=== PATIENT | female | born 1985 | race Caucasian/White ===

== ENCOUNTER 2016-04-06 19:17 | Emergency (ER) | payer SELFPAY ==
[2016-04-06 19:27] VITALS: BP 115/94
[2016-04-06] MEDS ORDERED: NORMAL SALINE 1000 ML 1,000 ML IV ONE (19:35)
--- NOTE | 2016-04-06 19:39 | ER Document Report ---
ED GI/ - General Chief Complaint: Nausea/Vomiting Stated Complaint: NAUSEA Time seen by provider: 19:30 Notes: 30-year-old female that comes to the ED for chief complaint of vomiting that started this morning, she states she has vomited almost non-stop. She reports feeling feverish, patient came by EMS and they recorded a temperature of 100.2. Patient reports pain in her upper abdomen, denies flank pain, denies dysuria, denies vaginal discharge or bleeding. LMP 2 weeks ago. Patient takes no daily medications, smokes marijuana for anxiety, reports past medical history of bipolar/depression. - Related Data Allergies/Adverse Reactions: Penicillins Allergy (Verified 09/04/13 02:23) Past Medical History - General Information source: Patient - Social History Smoking Status: Never Smoker Frequency of alcohol use: None Drug Abuse: Marijuana Lives with: Spouse/Significant other Family History: Arthritis, CAD, DM, Hypertension, Malignancy Pulmonary Medical History: Reports: Hx Asthma Renal/ Medical History: Reports: Hx Ovarian Cysts Psychiatric Medical History: Reports: Hx Anxiety - panic attacks, Hx Bipolar Disorder, Hx Depression Surgical Hx: Negative - Immunizations Immunizations up to date: Yes Hx Diphtheria, Pertussis, Tetanus Vaccination: Yes Review of Systems - Review of Systems Constitutional: See HPI EENT: No symptoms reported Cardiovascular: No symptoms reported Respiratory: No symptoms reported Gastrointestinal: See HPI Genitourinary: No symptoms reported Female Genitourinary: No symptoms reported Musculoskeletal: No symptoms reported Skin: No symptoms reported Hematologic/Lymphatic: No symptoms reported Neurological/Psychological: No symptoms reported Physical Exam - Vital signs Vitals: Temp Pulse Resp BP Pulse Ox 98.5 F 74 16 115/94 H 100 04/06/16 19:23 04/06/16 19:23 04/06/16 19:23 04/06/16 19:23 04/06/16 19:23 Interpretation: Normal - General General appearance: Appears well, Alert In distress: None - Alert and well-appearing - HEENT Head: Normocephalic, Atraumatic Eyes: Normal Pupils: PERRL - Respiratory Respiratory status: No respiratory distress Chest status: Nontender Breath sounds: Normal Chest palpation: Normal - Cardiovascular Rhythm: Regular. No: Tachycardia Heart sounds: Normal auscultation, S1 appreciated, S2 appreciated Murmur: No - Abdominal Inspection: Normal Distension: No distension Bowel sounds: Normal Tenderness: Nontender - Soft unremarkable abdomen. No: Tender, Guarding Organomegaly: No organomegaly - Back Back: Normal, Nontender. No: CVA tenderness, Vertebra tenderness - Extremities General upper extremity: Normal inspection, Nontender, Normal color, Normal ROM , Normal temperature General lower extremity: Normal inspection, Nontender, Normal color, Normal ROM , Normal temperature, Normal weight bearing. No: Arnol's sign - Neurological Neuro grossly intact: Yes Cognition: Normal Orientation: AAOx4 Rut Coma Scale Eye Opening: Spontaneous [place] Coma Scale Verbal: Oriented [place] Coma Scale Motor: Obeys Commands [place] Coma Scale Total: 15 Speech: Normal Motor strength normal: LUE, RUE, LLE, RLE Sensory: Normal - Psychological Associated symptoms: Normal affect, Normal mood - Skin Skin Temperature: Warm Skin Moisture: Dry Skin Color: Normal Course - Re-evaluation Re-evalutation: After Zofran, IV fluids, patient smiling, she states she feels excellent, she states she wants to go home. CBC shows leukocytosis at 16,000 with elevation of neutrophils, this is nonspecific given patient's vomiting, patient's abdomen is soft, patient has no CVA tenderness, patient is not tachycardic or hypotensive. Urine shows nitrites, white blood cells, bacteria, consistent with urinary tract infection. Patient given Levaquin. Patient does not have any urinary symptoms, however with fever and vomiting it's possible she has a mild pyelonephritis despite no flank pain on examination and patient feeling excellent after Zofran and IV fluids. Could also be viral. Low suspicion of any obstructive stone or any other emergent pathology. Patient will be treated with Levaquin, given Zofran/Phenergan, instructed to return immediately if she worsens, discussed return precautions. Patient states understanding and agreement. - Vital Signs Vital signs: Temp Pulse Resp BP Pulse Ox 98.5 F 74 16 115/94 H 100 04/06/16 19:23 04/06/16 19:23 04/06/16 19:23 04/06/16 19:23 04/06/16 19:23 - Laboratory Result Diagrams: 04/06/16 19:41 04/06/16 19:41 Laboratory results interpreted by me: 04/06/16 04/06/16 04/06/16 19:41 19:41 20:50 WBC 16.0 H Hgb 11.9 L Hct 35.2 L Seg Neuts % (Manual) 84 H Lymphocytes % (Manual) 9 L Abs Neuts (Manual) 13.4 H Carbon Dioxide 21 L AST 40 H Urine Protein 100 H Urine Ketones 80 H Urine Nitrite POSITIVE H Urine Urobilinogen 2.0 H Ur Leukocyte Esterase TRACE H Urine Ascorbic Acid 40 H Discharge - Discharge Clinical Impression: Fever Qualifiers: Fever type: unspecified Qualified Code(s): R50.9 - Fever, unspecified Urinary tract infection Qualifiers: Urinary tract infection type: site unspecified Hematuria presence: without hematuria Qualified Code(s): N39.0 - Urinary tract infection, site not specified Nausea and vomiting Qualifiers: Vomiting type: unspecified Vomiting Intractability: non-intractable Qualified Code(s): R11.2 - Nausea with vomiting, unspecified Condition: Stable Disposition: HOME, SELF-CARE Additional Instructions: Workup indicates dehydration and a urinary tract infection. Please take the Levaquin as prescribed, continue to rehydrate, take Zofran or Phenergan for nausea. Follow-up with primary care. Return to the emergency department for any concerning or worsening symptoms including uncontrolled vomiting, spiking fever, abdominal or back pain, etc. Prescriptions: Levofloxacin [Levaquin 750 mg Tablet] 750 mg PO DAILY #4 tablet Promethazine HCl [Phenergan 25 mg Tablet] 1 - 2 tab PO Q6H PRN #15 tablet PRN Reason: Forms: Return to Work
[2016-04-06 20:13] LABS: HEMATOCRIT 35.2 % (36.0-47.0); HEMOGLOBIN 11.9 g/dL (12.0-15.5); HGB HCT DIFFERENCE 0.5; MEAN CORPUSCULAR HEMOGLOBIN 29.1 pg (27.0-33.4); MEAN CORPUSCULAR HGB CONC 33.7 g/dL (32.0-36.0); MEAN CORPUSCULAR VOLUME 86 fl (80-97); RED BLOOD COUNT 4.08 10^6/uL (3.72-5.28); RED CELL DISTRIBUTION WIDTH 13.5 % (11.5-14.0)
[2016-04-06 20:17] LABS: ALANINE AMINOTRANSFERASE 25 U/L (9-52); ALBUMIN 4.2 g/dL (3.5-5.0); ALKALINE PHOSPHATASE 68 U/L (38-126); ANION GAP 15 (5-19); ASPARTATE AMINO TRANSFERASE 40 U/L (14-36); BILIRUBIN,TOTAL 0.7 mg/dL (0.2-1.3); BLOOD UREA NITROGEN 14 mg/dL (7-20); CALCIUM 9.2 mg/dL (8.4-10.2); CARBON DIOXIDE 21 mmol/L (22-30); CHLORIDE 106 mmol/L (98-107); CREATININE RESULT 0.68 mg/dL (0.52-1.25); GLUCOSE 103 mg/dL (75-110); LIPASE 52.9 U/L (23-300); POTASSIUM 3.6 mmol/L (3.6-5.0); SODIUM 141.8 mmol/L (137-145)
[2016-04-06 20:51] LABS: BASOPHILS % (MANUAL) 0 % (0-2); EOSINOPHILS % (MANUAL) 0 % (0-6); LYMPHOCYTES % (MANUAL) 9 % (13-45); TOTAL CELLS COUNTED 100
[2016-04-06 20:52] LABS: TOXIC GRANULATION 1+
[2016-04-06 20:54] LABS: RBC MORPHOLOGY COMMENT NORMO-CYTIC/CHROMIC
[2016-04-06] MEDS ORDERED: ONDANSETRON HCL INJ/PF 4 MG/2 ML SDV IV ONE (21:04)
[2016-04-06 21:17] LABS: APPEARANCE,URINE SLIGHTLY-CLOUDY; BILIRUBIN,URINE NEGATIVE (NEGATIVE); GLUCOSE, URINE NEGATIVE (NEGATIVE); KETONES,URINE 80 mg/dL (NEGATIVE); LEUKOCYTE ESTERASE,URINE TRACE (NEGATIVE); NITRITE,URINE POSITIVE (NEGATIVE); PROTEIN,URINE 100 mg/dL (NEGATIVE); URINE SPECIFIC GRAVITY 1.026
[2016-04-06] MEDS ORDERED: ONDANSETRON ODT 4 MG TAB (6 TAB/DSPK) PO PRN (21:52)
[2016-04-06] MEDS ORDERED: LEVOFLOXACIN 750 MG TABLET PO ONE (21:52)
== END 2016-04-06 22:07 | disposition home or self-care (01) ==
LOC: ER 19:17
DX: N39.0 Urinary tract infection, site not specified (principal); R50.9 Fever, unspecified; R11.2 Nausea with vomiting, unspecified; F41.9 Anxiety disorder, unspecified; F12.90 Cannabis use, unspecified, uncomplicated
CPT/HCPCS: 99283; 96361; 96374; 36415; 83690; 84703; 85025; 80053; 81001; 87804; J2405; J7030

== ENCOUNTER 2016-08-25 10:57 | Emergency (ER) | payer SELFPAY ==
[2016-08-25] MEDS ORDERED: FAMOTIDINE INJ/PF 20 MG/2 ML SDV IV ONE (11:20)
[2016-08-25] MEDS ORDERED: ONDANSETRON HCL INJ/PF 4 MG/2 ML SDV IV ONE (11:20)
--- NOTE | 2016-08-25 11:22 | ER Document Report ---
ED GI/ - General Chief Complaint: Nausea/Vomiting Stated Complaint: NAUSEA Time Seen by Provider: 08/25/16 11:05 Mode of Arrival: Medic Information source: Patient - HPI Patient complains to provider of: Abdominal pain, Vomiting Onset: This morning Timing/Duration: Sudden Quality of pain: Achy Severity at maximum: Moderate Severity in ED: Moderate Pain Level: 4 Location: Epigastric Associated symptoms: Diarrhea, Nausea, Vomiting Exacerbated by: Denies Relieved by: Denies Similar symptoms previously: Yes Recently seen / treated by doctor: No Notes: 08/25/16 11:21 Is a 30-year-old female who presents to the emergency room complaining of nausea and vomiting with epigastric abdominal pain that started around 930 this morning, patient denies any fevers, no dysuria or hematuria, no vaginal discharge or irregular bleeding, denies being , she does report one episode of diarrhea, history of similar symptoms back in March where she states she vomited for 16 hours straight, she denies being a smoker using alcohol but she does admit to using marijuana - Related Data Allergies/Adverse Reactions: Penicillins Allergy (Verified 09/04/13 02:23) Past Medical History - General Information source: Patient - Social History Smoking Status: Never Smoker Drug Abuse: Marijuana Family History: Arthritis, CAD, DM, Hypertension, Malignancy Pulmonary Medical History: Reports: Hx Asthma Renal/ Medical History: Reports: Hx Ovarian Cysts Psychiatric Medical History: Reports: Hx Anxiety - panic attacks, Hx Bipolar Disorder, Hx Depression - Immunizations Immunizations up to date: Yes Hx Diphtheria, Pertussis, Tetanus Vaccination: Yes Review of Systems - Review of Systems Constitutional: No symptoms reported EENT: No symptoms reported Cardiovascular: No symptoms reported Respiratory: No symptoms reported Gastrointestinal: See HPI Genitourinary: No symptoms reported Female Genitourinary: No symptoms reported Musculoskeletal: No symptoms reported Skin: No symptoms reported Hematologic/Lymphatic: No symptoms reported Neurological/Psychological: No symptoms reported -: Yes All other systems reviewed and negative Physical Exam - Vital signs Vitals: Temp Pulse Resp BP Pulse Ox 97.3 F 80 18 123/70 100 08/25/16 11:09 08/25/16 11:09 08/25/16 11:09 08/25/16 11:09 08/25/16 11:09 Interpretation: Normal - General General appearance: Alert - HEENT Head: Normocephalic, Atraumatic Eyes: Normal Pupils: PERRL - Respiratory Respiratory status: No respiratory distress Chest status: Nontender Breath sounds: Normal Chest palpation: Normal - Cardiovascular Rhythm: Regular Heart sounds: Normal auscultation Murmur: No - Abdominal Inspection: Normal Distension: No distension Bowel sounds: Normal Tenderness: Tender - Epigastric Organomegaly: No organomegaly - Back Back: Normal, Nontender - Extremities General upper extremity: Normal inspection, Nontender, Normal color, Normal ROM , Normal temperature General lower extremity: Normal inspection, Nontender, Normal color, Normal ROM , Normal temperature, Normal weight bearing. No: Arnol's sign - Neurological Neuro grossly intact: Yes Cognition: Normal Orientation: AAOx4 [place] Coma Scale Eye Opening: Spontaneous [place] Coma Scale Verbal: Oriented [place] Coma Scale Motor: Obeys Commands [place] Coma Scale Total: 15 Speech: Normal Motor strength normal: LUE, RUE, LLE, RLE Sensory: Normal - Psychological Associated symptoms: Tearful - Skin Skin Temperature: Warm Skin Moisture: Dry Skin Color: Normal Course - Re-evaluation Re-evalutation: 08/25/16 16:05 Patient reports feeling much better, she still has some epigastric pain but that is improved, she is able to ambulate without difficulty and is now urinating, her mother at bedside who is a nurse practitioner, reports she will ensure that patient follows up with industrial manufacturing technician, together they refused to allow patient to receive the Haldol that has been ordered, patient will be discharged with instructions for follow-up, and instructed to return if any additional concerns, patient and mother at bedside acknowledge understanding and agreement with this plan - Vital Signs Vital signs: Temp Pulse Resp BP Pulse Ox 97.3 F 80 18 123/70 100 08/25/16 11:09 08/25/16 11:09 08/25/16 11:09 08/25/16 11:09 08/25/16 11:09 - Laboratory Result Diagrams: 08/25/16 11:35 08/25/16 11:35 Laboratory results interpreted by me: 08/25/16 08/25/16 11:35 12:00 Carbon Dioxide 19 L Glucose 121 H Total Protein 9.3 H Albumin 5.1 H Urine Ketones TRACE H Urine Ascorbic Acid 40 H Discharge - Discharge Clinical Impression: Nausea and vomiting Qualifiers: Vomiting type: unspecified Vomiting Intractability: non-intractable Qualified Code(s): R11.2 - Nausea with vomiting, unspecified Condition: Stable Disposition: HOME, SELF-CARE Instructions: Antinausea Medication ([facility]), Intravenous (IV) Fluids ([facility]), Vomiting ([facility]), Gastroenterology Additional Instructions: Follow up with your primary care provider in one to 2 days. Return to the emergency room immediately if symptoms worsen or any additional concerns. Prescriptions: Promethazine HCl [Phenergan 25 mg Supp.rect] 1 supp MO Q6H #20 supp.rect
[2016-08-25 11:46] LABS: ABSOLUTE BASOPHILS # (AUTO) 0.1 10^3/uL (0.0-0.2); ABSOLUTE EOSINOPHILS # (AUTO) 0.2 10^3/uL (0.0-0.6); ABSOLUTE LYMPHOCYTES (AUTO) 2.1 10^3/uL (0.5-4.7); ABSOLUTE MONOCYTES (AUTO) 0.6 10^3/uL (0.1-1.4); ABSOLUTE NEUT (AUTO) 7.5 10^3/uL (1.7-8.2); BASOPHILS % (AUTO) 0.7 % (0-2); EOSINOPHILS % (AUTO) 2.2 % (0-6); HEMATOCRIT 42.5 % (36.0-47.0); HGB HCT DIFFERENCE -0.5; LYMPHOCYTES % (AUTO) 19.7 % (13-45); MEAN CORPUSCULAR HEMOGLOBIN 28.8 pg (27.0-33.4); MEAN CORPUSCULAR HGB CONC 32.8 g/dL (32.0-36.0); MEAN CORPUSCULAR VOLUME 88 fl (80-97); MONOCYTES % (AUTO) 6.1 % (3-13); RED BLOOD COUNT 4.84 10^6/uL (3.72-5.28); RED CELL DISTRIBUTION WIDTH 12.9 % (11.5-14.0); SEGMENTED NEUTROPHILS % (AUTO) 71.3 % (42-78); WHITE BLOOD COUNT 10.5 10^3/uL (4.0-10.5)
[2016-08-25] MEDS: NORMAL SALINE 1000 ML 1,000 ML IV PRN ×2 (11:46→15:14)
[2016-08-25 12:04] LABS: ALANINE AMINOTRANSFERASE 24 U/L (9-52); ALBUMIN 5.1 g/dL (3.5-5.0); ALKALINE PHOSPHATASE 75 U/L (38-126); ANION GAP 19 (5-19); ASPARTATE AMINO TRANSFERASE 30 U/L (14-36); BILIRUBIN,DIRECT 0.2 mg/dL (0.0-0.4); BILIRUBIN,TOTAL 0.8 mg/dL (0.2-1.3); BLOOD UREA NITROGEN 10 mg/dL (7-20); CARBON DIOXIDE 19 mmol/L (22-30); CHLORIDE 104 mmol/L (98-107); CREATININE RESULT 0.78 mg/dL (0.52-1.25); GLUCOSE 121 mg/dL (75-110); LIPASE 127.7 U/L (23-300); POTASSIUM 3.6 mmol/L (3.6-5.0); TOTAL PROTEIN 9.3 g/dL (6.3-8.2)
[2016-08-25 12:14] LABS: APPEARANCE,URINE SLIGHTLY-CLOUDY; BILIRUBIN,URINE NEGATIVE (NEGATIVE); GLUCOSE, URINE NEGATIVE (NEGATIVE); KETONES,URINE TRACE mg/dL (NEGATIVE); LEUKOCYTE ESTERASE,URINE NEGATIVE (NEGATIVE); NITRITE,URINE NEGATIVE (NEGATIVE); PROTEIN,URINE NEGATIVE (NEGATIVE); URINE SPECIFIC GRAVITY 1.012; UROBILINOGEN,URINE NEGATIVE mg/dL (<2.0)
[2016-08-25 12:37] LABS: URINE BARBITURATES SCREEN NEGATIVE; URINE METHADONE SCREEN NEGATIVE; URINE OPIATES LOW NEGATIVE; URINE PHENCYCLIDINE SCREEN NEGATIVE
[2016-08-25] MEDS ORDERED: LORAZEPAM INJ 2 MG/1 ML VIAL IV ONE (12:44)
[2016-08-25] MEDS ORDERED: NORMAL SALINE 1000 ML 1,000 ML IV PRN ×2 (13:29→15:10)
[2016-08-25] MEDS ORDERED: DIPHENHYDRAMINE HCL 50 MG/ML VIAL IV ONE (14:04)
[2016-08-25] MEDS ORDERED: METOCLOPRAMIDE HCL INJ/PF 10 MG/2 ML SDV IV ONE (14:04)
[2016-08-25] MEDS ORDERED: PROMETHAZINE HCL INJ 50 MG/1 ML VIAL IM ONE (15:03)
[2016-08-25] MEDS ORDERED: HALOPERIDOL LACTATE INJ 5 MG/1 ML VIAL IV ONE (15:47)
[2016-08-25] MEDS ORDERED: ONDANSETRON ODT 4 MG TAB (6 TAB/DSPK) PO PRN (16:07)
[2016-08-25 16:31] VITALS: BP 104/62
== END 2016-08-25 16:33 | disposition home or self-care (01) ==
LOC: ER 10:57
DX: R11.2 Nausea with vomiting, unspecified (principal); R10.13 Epigastric pain; R19.7 Diarrhea, unspecified; Z88.0 Allergy status to penicillin; J45.909 Unspecified asthma, uncomplicated
CPT/HCPCS: 99284; 96372; 96361; 96374; 96375; 86677 ×3; 36415; 87086; 83690; 84703; 85025; 80053; 81001; 80307; J1200; J2765; J2060; J2550; J2405; J7030; S0028

== ENCOUNTER 2016-10-10 21:05 | Emergency (ER) | payer SELFPAY ==
[2016-10-11 00:34] LABS: ALANINE AMINOTRANSFERASE 30 U/L (9-52); ALBUMIN 5.4 g/dL (3.5-5.0); ALKALINE PHOSPHATASE 92 U/L (38-126); ASPARTATE AMINO TRANSFERASE 28 U/L (14-36); BILIRUBIN,DIRECT 0.3 mg/dL (0.0-0.4); BILIRUBIN,TOTAL 0.8 mg/dL (0.2-1.3); BLOOD UREA NITROGEN 14 mg/dL (7-20); CALCIUM 10.9 mg/dL (8.4-10.2); CREATININE RESULT 0.74 mg/dL (0.52-1.25); GLUCOSE 170 mg/dL (75-110); POTASSIUM 3.9 mmol/L (3.6-5.0); TOTAL PROTEIN 9.3 g/dL (6.3-8.2)
[2016-10-11 00:43] LABS: ANION GAP 19 (5-19); CARBON DIOXIDE 24 mmol/L (22-30); CHLORIDE 101 mmol/L (98-107); SODIUM 143.7 mmol/L (137-145)
[2016-10-11 01:01] LABS: HEMATOCRIT 39.2 % (36.0-47.0); HEMOGLOBIN 13.1 g/dL (12.0-15.5); HGB HCT DIFFERENCE 0.1; MEAN CORPUSCULAR HEMOGLOBIN 29.3 pg (27.0-33.4); MEAN CORPUSCULAR HGB CONC 33.4 g/dL (32.0-36.0); MEAN CORPUSCULAR VOLUME 88 fl (80-97); RED BLOOD COUNT 4.47 10^6/uL (3.72-5.28); RED CELL DISTRIBUTION WIDTH 13.1 % (11.5-14.0); WHITE BLOOD COUNT 19.9 10^3/uL (4.0-10.5)
[2016-10-11 01:03] LABS: BASOPHILS % (MANUAL) 0 % (0-2); EOSINOPHILS % (MANUAL) 0 % (0-6); LYMPHOCYTES % (MANUAL) 3 % (13-45); TOTAL CELLS COUNTED 100
[2016-10-11 01:04] LABS: OVALOCYTES SLIGHT; POIKILOCYTOSIS SLIGHT; SCHISTOCYTES SLIGHT; TOXIC GRANULATION SLIGHT
[2016-10-11] MEDS ORDERED: PROMETHAZINE HCL INJ 25 MG/1 ML VIAL IV ONE (02:20)
[2016-10-11] MEDS ORDERED: NORMAL SALINE 1000 ML 2,000 ML IV ONE (02:20)
[2016-10-11] MEDS ORDERED: PROMETHAZINE HCL INJ 25 MG/1 ML VIAL ONE (02:38)
[2016-10-11 02:43] LABS: APPEARANCE,URINE CLOUDY; BILIRUBIN,URINE NEGATIVE (NEGATIVE); GLUCOSE, URINE NEGATIVE (NEGATIVE); KETONES,URINE 80 mg/dL (NEGATIVE); LEUKOCYTE ESTERASE,URINE SMALL (NEGATIVE); NITRITE,URINE NEGATIVE (NEGATIVE); PROTEIN,URINE 30 mg/dL (NEGATIVE); UROBILINOGEN,URINE NEGATIVE mg/dL (<2.0)
[2016-10-11] MEDS ORDERED: DIPHENHYDRAMINE HCL 50 MG/ML VIAL IV ONE (03:30)
[2016-10-11] MEDS ORDERED: LORAZEPAM INJ 2 MG/1 ML VIAL IV ONE (03:30)
[2016-10-11] MEDS ORDERED: METOCLOPRAMIDE HCL INJ/PF 10 MG/2 ML SDV IV ONE (03:30)
[2016-10-11] MEDS ORDERED: LEVOFLOXACIN 750 MG/D5W RTU 750 MG/150 ML RTUPB IV ONE (03:50)
--- NOTE | 2016-10-11 04:03 | ER Document Report ---
ED GI/ - General Chief Complaint: Nausea/Vomiting Stated Complaint: NAUSEA, VOMITING Time Seen by Provider: 10/11/16 02:03 Notes: 30-year-old female who presents to the emergency room complaining of nausea and vomiting with epigastric abdominal pain that started around 11 AM this morning, patient denies any fevers, no dysuria or hematuria, diarrhea, no vaginal discharge or irregular bleeding, denies being , history of similar symptoms and has required previous sedation with haldol and ativan, she denies being a smoker using alcohol but she does admit to using marijuana. she states her symptoms do get worse when she smokes marijuana. States she ahs not been drinking water for the past 5 days, minimal PO intake TRAVEL OUTSIDE OF THE [place] IN LAST 30 DAYS: No - Related Data Allergies/Adverse Reactions: Penicillins Allergy (Verified 09/04/13 02:23) Past Medical History - Social History Smoking Status: Current Every Day Smoker Family History: Arthritis, CAD, DM, Hypertension, Malignancy Patient has suicidal ideation: No Patient has homicidal ideation: No Pulmonary Medical History: Reports: Hx Asthma Renal/ Medical History: Reports: Hx Ovarian Cysts. Denies: Hx Peritoneal Dialysis Psychiatric Medical History: Reports: Hx Anxiety - panic attacks, Hx Bipolar Disorder, Hx Depression - Immunizations Immunizations up to date: Yes Hx Diphtheria, Pertussis, Tetanus Vaccination: Yes Review of Systems - Review of Systems Constitutional: No symptoms reported Gastrointestinal: See HPI Genitourinary: See HPI -: Yes All other systems reviewed and negative Physical Exam - Vital signs Vitals: Temp Pulse Resp BP Pulse Ox 98 F 96 18 110/76 100 10/10/16 21:16 10/10/16 21:16 10/10/16 21:16 10/10/16 21:16 10/10/16 21:16 - Notes Notes: PHYSICAL EXAM GENERAL: Alert, interacts well. HEAD: Normocephalic, atraumatic. EYES: Pupils equal, round, and reactive to light. Extraocular movements intact. ENT: Oral mucosa moist, tongue midline. NECK: Full range of motion. Supple. Trachea midline. LUNGS: Clear to auscultation bilaterally, no wheezes, rales, or rhonchi. No respiratory distress. HEART: Regular rate and rhythm. No murmurs, gallops, or rubs. ABDOMEN: Soft, nondistended, nontender. No guarding, rebound, or rigidity.. Bowel sounds present in all 4 quadrants. EXTREMITIES: Moves all 4 extremities spontaneously. No edema, radial and dorsalis pedis pulses 2/4 bilaterally. No cyanosis. NEUROLOGICAL: Alert and oriented x4. Normal speech. PSYCH: Normal affect, normal mood. SKIN: Warm, dry, normal turgor. No rashes or lesions noted. Course - Re-evaluation Re-evalutation: 10/11/16 03:35 Patient is a 31-year-old female who is hemodynamically stable, no acute distress and afebrile. Presentation today is consistent with cyclic vomiting. Patient's workup does reveal that she has evidence of pyelonephritis with no evidence of acute renal failure. Patient has been given medications which have helped her nausea. Patient has not had any episodes of emesis in the department and states she feels a lot better. Patient was received antibiotics in the department and stable for discharge home. Patient given strict return precautions. Patient agrees with plan. Patient to follow-up with gastroenterology regarding her cyclic vomiting and primary care related to today 's visit. - Vital Signs Vital signs: Temp Pulse Resp BP Pulse Ox 99.1 F 90 14 87/41 L 99 10/11/16 05:53 10/11/16 05:53 10/11/16 05:53 10/11/16 05:53 10/11/16 05:53 - Laboratory Result Diagrams: 10/11/16 00:18 10/11/16 00:18 Laboratory results interpreted by me: 10/11/16 10/11/16 10/11/16 00:18 00:18 02:08 WBC 19.9 H Seg Neuts % (Manual) 94 H Lymphocytes % (Manual) 3 L Abs Neuts (Manual) 18.7 H Glucose 170 H Calcium 10.9 H Total Protein 9.3 H Albumin 5.4 H Urine Protein 30 H Urine Ketones 80 H Ur Leukocyte Esterase SMALL H Urine Ascorbic Acid 40 H Discharge - Discharge Clinical Impression: Pyelonephritis, Vomiting Condition: Good Disposition: HOME, SELF-CARE Additional Instructions: PYELONEPHRITIS: Your evaluation shows evidence of pyelonephritis. This is an infection in the kidney. Typical symptoms are fever, pain in the flank, pain on urination, and frequent urination. Many cases of pyelonephritis can be treated at home. Hospital care may be necessary for patients who are very ill, or elderly or . Pyelonephritis is treated with antibiotics. Be sure to take all the medication as prescribed. Drink plenty of liquids (about three quarts per day) . You may take acetaminophen for fever. You should feel significantly improved within two days. You should have a recheck of your urine in about one week to insure that the infection is gone. Return for a re-examination if your symptoms worsen in any way -- such as high fever, shaking chills, severe weakness or dizziness, severe pain, or inability to pass your urine. ANTINAUSEA MEDICATION: Try benadryl and zofran You have been given a medication to suppress nausea and vomiting. This type of medication can be given as a shot, pill, or suppository. It will usually last for many hours. Pills and shots usually last six to eight hours, suppositories last about 12 hours. For the typical illness, only one or two doses of the medication may be necessary. Mild lightheadedness may occur. This type of medicine can cause drowsiness. Do not drive or operate dangerous machinery while under its influence. Do not mix with alcohol. See your doctor at once if you have muscle spasms or tightness, or uncontrollable motions (particularly of the neck, mouth, or jaw). Persistent vomiting or severe lightheadedness should also be evaluated by the physician. LEVOFLOXACIN: You have been given an antibacterial agent, levofloxacin (Levaquin). This medicine is not related to the penicillins, sulfas, cephalosporins, or tetracyclines. It is often given to patients who are allergic to these drugs. It has been chosen for you either because other drugs are not appropriate, or because of the nature of your problem. Levaquin should not be taken with antacids, as these can decrease its effectiveness. It can be taken without regard to meals. LEVAQUIN SHOULD NOT BE TAKEN BY CHILDREN, NURSING WOMEN, OR WOMEN. Although Levaquin is usually well-tolerated, common side effects can include nausea and diarrhea. Contact your doctor if you experience any unusual symptoms while on this medication, such as joint pain or swelling, shortness of breath, wheezing, faintness, or hives. USE OF ACETAMINOPHEN (Tylenol): Acetaminophen may be taken for pain relief or fever control. It's much safer than aspirin, offering a wider range of "safe" dosages. It is safe during . Some brand names are Tylenol, Panadol, Datril, Anacin 3, Tempra, and Liquiprin. Acetaminophen can be repeated every four hours. The following are maximum recommended dosages: >89 pounds or adults 650 mg to 900 mg Acetaminophen can be repeated every four hours. Maximum dose not to exceed 4000 mg a day. FOLLOW-UP CARE: If you have been referred to a physician for follow-up care, call the physician s office for an appointment as you were instructed or within the next two days. If you experience worsening or a significant change in your symptoms, notify the physician immediately or return to the Emergency Department at any time for re-evaluation. Prescriptions: Levofloxacin [Levaquin 750 mg Tablet] 750 mg PO DAILY #5 tablet Ondansetron [Zofran Odt 4 mg Tablet] 1 - 2 tab PO Q4H PRN #25 tab.rapdis PRN Reason: For Nausea/Vomiting Forms: Parent Work Note
[2016-10-11 06:46] VITALS: BP 87/41
== END 2016-10-11 05:53 | disposition home or self-care (01) ==
LOC: ER 21:05
DX: G43.A0 Cyclical vomiting, in migraine, not intractable (principal); N12 Tubulo-interstitial nephritis, not specified as acute or chronic; R10.13 Epigastric pain; F17.200 Nicotine dependence, unspecified, uncomplicated; Z88.0 Allergy status to penicillin
CPT/HCPCS: 36415; 85025; 81025; 80053; 81001; J1200; J2765; J2060; J7030; J1956; J2550

== ENCOUNTER 2017-06-20 08:05 | Emergency (ER) | payer SELFPAY ==
--- NOTE | 2017-06-20 08:24 | ER Document Report ---
ED General - General Chief Complaint: Urinary Problem Stated Complaint: BACK PAIN/VOMITING Time Seen by Provider: 06/20/17 08:24 Mode of Arrival: Ambulatory Information source: Patient TRAVEL OUTSIDE OF THE [place] IN LAST 30 DAYS: No - HPI Notes: 31-year-old female history of acid reflux and anxiety presents today with complaints of right flank pain x 2 days with nausea and vomiting that started this morning. Pain is 8 out of 10, throbbing achy. Patient also complains of malodorous vaginal discharge. Last menstrual period was 2 weeks ago. Patient reports she is having scarring of her fallopian tubes due to having cysts rupture which she states caused her to have PID that was untreated for a while. Patient reports her last menstrual period was 2 weeks ago. States she also has frequent pyelonephritis this. Worse with time, nothing makes better. Has not tried any [id number] medications. Denies fevers, chills, chest pain, palpitations, shortness of breath, dyspnea, hematuria,blurred vision, double vision, loss of vision, speech changes, LH, dizziness, syncope, headaches, wheezing, ST, URI, neck pain, weakness, bowel or bladder dysfunction, saddle anesthesia, numbness or tingling in bilateral upper or lower extremities equally , muscle paralysis, weakness in bilateral upper or lower extremities equally or rash. Denies IV drug use. - Related Data Allergies/Adverse Reactions: Penicillins Allergy (Verified 06/20/17 08:05) Past Medical History - General Information source: Patient - Social History Smoking Status: Unknown if Ever Smoked Family History: Arthritis, CAD, DM, Hypertension, Malignancy Pulmonary Medical History: Reports: Hx Asthma Neurological Medical History: Reports: Hx Migraine Renal/ Medical History: Reports: Hx Ovarian Cysts. Denies: Hx Peritoneal Dialysis GI Medical History: Reports: Hx Gastroesophageal Reflux Disease Psychiatric Medical History: Reports: Hx Anxiety - panic attacks, Hx Bipolar Disorder, Hx Depression - Immunizations Immunizations up to date: Yes Hx Diphtheria, Pertussis, Tetanus Vaccination: Yes Review of Systems - Review of Systems Constitutional: No symptoms reported EENT: No symptoms reported Cardiovascular: No symptoms reported Respiratory: No symptoms reported Gastrointestinal: See HPI Genitourinary: See HPI Female Genitourinary: No symptoms reported Musculoskeletal: No symptoms reported Skin: No symptoms reported Hematologic/Lymphatic: No symptoms reported Neurological/Psychological: No symptoms reported Physical Exam - Vital signs Vitals: Temp Pulse Resp BP Pulse Ox 97.8 F 74 20 102/82 100 06/20/17 08:12 06/20/17 08:12 06/20/17 08:12 06/20/17 08:12 06/20/17 08:12 - Notes Notes: PHYSICAL EXAMINATION: GENERAL: Well-appearing, well-nourished and in no mild distress. HEAD: Atraumatic, normocephalic. EYES: Pupils equal round and reactive to light, extraocular movements intact, conjunctiva are normal. ENT: Nares patent, oropharynx clear without exudates. Moist mucous membranes. NECK: Normal range of motion, supple without lymphadenopathy LUNGS: Breath sounds clear to auscultation bilaterally and equal. No wheezes rales or rhonchi. HEART: Regular rate and rhythm without murmurs ABDOMEN: Soft, nontender, nondistended abdomen. No guarding, no rebound. No masses appreciated. Right flank pain appreciated. Female : External genitalia without erythema, exudate or discharge. Vaginal vault is without discharge. Cervix is of normal color without lesion. There is no bleeding noted. Uterus is noted to be of normal size and nontender. No cervical motion tenderness is seen. No masses are palpated. Musculoskeletal: Normal range of motion, no pitting or edema. No cyanosis. NEUROLOGICAL: Cranial nerves grossly intact. Normal speech, normal gait. Normal sensory, motor exams PSYCH: Normal mood, normal affect. SKIN: Warm, Dry, normal turgor, no rashes or lesions noted. Course - Re-evaluation Re-evalutation: 06/20/17 16:07 Healthy 31-year-old female who is afebrile and vitals are stable presents for evaluation of right flank pain with nausea and vomiting. CBC shows slight leukocytosis 10.9, and no anemia. H&H slightly elevated due to dehydration. CMP negative for hepatic or renal dysfunction, urinalysis shows UTI slight dehydration. Wet mount shows bacterial vaginosis and yeast infection. CT abdomen pelvis without contrast was negative for nephrolithiasis, appendicitis, dilated bowel, obstruction, etc and no intra-abdominal pathology was noted. Patient given 1 g of Rocephin, Zofran and Compazine IV as well as 1 L of fluid. Patient reports she is feeling much better reevaluation been stable, patient is afebrile and in no distress. Discussed with patient take Flagyl as directed do not drink alcohol while taking this medication. Advised her to finish Macrobid for UTI. Advised patient to follow-up with primary care provider and [employer] within 3-5 days. Return if any symptoms become worse. At this time will discharge with return precautions and follow-up recommendations. Verbal discharge instructions given a the bedside and opportunity for questions given. Medication warnings reviewed. Patient is in agreement with this plan and has verbalized understanding of return precautions and the need for primary care follow-up in the next 24-72 hours. After performing a Medical Screening Examination, I estimate there is LOW risk for ACUTE APPENDICITIS, BOWEL OBSTRUCTION, ACUTE CHOLECYSTITIS, PERFORATED DIVERTICULITIS, INCARCERATED HERNIA, PANCREATITIS, PELVIC INFLAMMATORY DISEASE, PERFORATED ULCER, ECTOPIC , or TUBO-OVARIAN ABSCESS, thus I consider the discharge disposition reasonable. Also, there is no evidence or peritonitis , sepsis, or toxicity. I have reevaluated this patient multiple times and no significant life threatening changes are noted. The patient and I have discussed the diagnosis and risks, and we agree with discharging home with close follow-up with the understanding that symptoms and presentations can change. We also discussed returning to the Emergency Department immediately if new or worsening symptoms occur. We have discussed the symptoms which are most concerning (e.g., bloody stool, fever, changing or worsening pain, vomiting) that necessitate immediate return. - Vital Signs Vital signs: Temp Pulse Resp BP Pulse Ox 98.0 F 78 20 111/64 100 06/20/17 11:01 06/20/17 13:31 06/20/17 13:31 06/20/17 13:31 06/20/17 13:31 - Laboratory Result Diagrams: 06/20/17 09:19 06/20/17 09:19 Laboratory results interpreted by me: 06/20/17 06/20/17 06/20/17 09:19 09:19 10:18 WBC 10.9 H Seg Neutrophils % 82.9 H Lymphocytes % 12.0 L Absolute Neutrophils 9.1 H Sodium 146.7 H Carbon Dioxide 21 L Anion Gap 21 H Glucose 154 H Calcium 10.3 H Total Protein 9.3 H Albumin 5.3 H Urine Ketones 80 H Urine Nitrite POSITIVE H Ur Leukocyte Esterase SMALL H Urine Ascorbic Acid 20 H Discharge - Discharge Clinical Impression: Bacterial vaginosis, Vagina, candidiasis UTI (urinary tract infection) Qualifiers: Urinary tract infection type: acute cystitis Hematuria presence: without hematuria Qualified Code(s): N30.00 - Acute cystitis without hematuria Condition: Good Disposition: HOME, SELF-CARE Instructions: Urinary Tract Infection ([facility]), Vaginal Yeast Infection ([facility]), Vaginosis, Bacterial ([facility]) Additional Instructions: Vaginosis, Bacterial Your exam shows you have bacterial vaginosis. This condition is due to an overgrowth of bacteria in the vagina. Symptoms may include vaginal itching or pain, a smelly discharge, and sometimes burning with urination. Normally this is not transmitted by sexual contact. Vaginosis can be treated with oral or topical antibiotics. Metronidazole ( Flagyl) pills are usually effective. Topical vaginal creams include Cleocin and Metro-Gel. You should avoid sexual contact until your symptoms are all better. Call the doctor if you develop pelvic pain, fever, or problems with urination, or if you don't improve as expected. Prescriptions: Fluconazole [Diflucan] 150 mg PO ONCE PRN #1 tablet PRN Reason: Metronidazole [Flagyl 500 mg Tablet] 500 mg PO BID #14 tablet Phenazopyridine HCl [Pyridium] 200 mg PO TIDP PRN #9 tablet PRN Reason: Forms: Return to Work Referrals: INEZ WELCH MD [ACTIVE STAFF] - Follow up in 3-5 days MITZY LINCOLN MD [ACTIVE STAFF] - Follow up in 3-5 days
[2017-06-20] MEDS ORDERED: NORMAL SALINE 1000 ML 1,000 ML IV ONE ×2 (08:31→11:42)
[2017-06-20] MEDS ORDERED: ONDANSETRON HCL INJ/PF 4 MG/2 ML SDV IV ONE (08:31)
[2017-06-20] MEDS ORDERED: KETOROLAC TROMETHAMINE INJ/PF 30 MG/1 ML SDV IV ONE (08:31)
[2017-06-20 09:54] LABS: ABSOLUTE BASOPHILS # (AUTO) 0.1 10^3/uL (0.0-0.2); ABSOLUTE LYMPHOCYTES (AUTO) 1.3 10^3/uL (0.5-4.7); ABSOLUTE MONOCYTES (AUTO) 0.5 10^3/uL (0.1-1.4); ABSOLUTE NEUT (AUTO) 9.1 10^3/uL (1.7-8.2); BASOPHILS % (AUTO) 0.6 % (0-2); EOSINOPHILS % (AUTO) 0.2 % (0-6); HEMATOCRIT 43.2 % (36.0-47.0); HEMOGLOBIN 14.7 g/dL (12.0-15.5); MEAN CORPUSCULAR HGB CONC 34.1 g/dL (32.0-36.0); MEAN CORPUSCULAR VOLUME 85 fl (80-97); MONOCYTES % (AUTO) 4.3 % (3-13); PLATELET COUNT 322 10^3/uL (150-450); RED BLOOD COUNT 5.08 10^6/uL (3.72-5.28); RED CELL DISTRIBUTION WIDTH 13.4 % (11.5-14.0); SEGMENTED NEUTROPHILS % (AUTO) 82.9 % (42-78); TOTAL CELLS COUNTED % (AUTO) 100 %; WHITE BLOOD COUNT 10.9 10^3/uL (4.0-10.5)
--- NOTE | 2017-06-20 10:16 | RADIOLOGY REPORT (SQ) ---
EXAM DESCRIPTION: CT ABD/PELVIS WITH IV ONLY COMPLETED DATE/TIME: 06/20/2017 9:54 am REASON FOR STUDY: R flank pain with lower abd pain x 2 days COMPARISON: None. TECHNIQUE: CT scan of the abdomen and pelvis performed using helical scanning technique with dynamic intravenous contrast injection. No oral contrast. Images reviewed with lung, soft tissue, and bone windows. Reconstructed coronal and sagittal MPR images reviewed. Delayed images for evaluation of the urinary system also acquired. All images stored on PACS. All CT scanners at this facility use dose modulation, iterative reconstruction, and/or weight based d osing when appropriate to reduce radiation dose to as low as reasonably achievable (ALARA). [facility]: Dose Right [facility]: CareDose [facility]: Dose Right [facility]: Teradose 4D [facility]: Ringio CONTRAST TYPE AND DOSE: contrast/concentration: Isovue 370.00 mg/ml; Total Contrast Delivered: 58.0 ml; Total Saline Delivered: 65.0 ml RENAL FUNCTION: None required. The patient is less than 50 years old. RADIATION DOSE: CT Rad equipment meets quality standard of care and radiation dose reduction techniq ues were employed. CTDIvol: 4.9 - 5.3 mGy. DLP: 492 mGy-cm.. LIMITATIONS: None. FINDINGS: LOWER CHEST: No significant findings. No nodules or infiltrates. LIVER: Normal size. No masses. No dilated ducts. SPLEEN: Normal size. No focal lesions. PANCREAS: No masses. No significant calcifications. No adjacent inflammation or peripancreatic fluid collections. Pancreatic duct not dilated. GALLBLADDER: No identified stones by CT criteria. No inflammatory changes to suggest cholecystitis. ADRENAL GLANDS: No significant masses or asymmetry. RIGHT KIDNEY AND URETER: No solid masses. No significant calcifications. No hydronephrosis or hyd roureter. LEFT KIDNEY AND URETER: No solid masses. No significant calcifications. No hydronephrosis or hydr oureter. AORTA AND VESSELS: No aneurysm. No dissection. Renal arteries, SMA, celiac without stenosis. RETROPERITONEUM: No retroperitoneal adenopathy, hemorrhage or masses. BOWEL AND PERITONEAL CAVITY: No masses or inflammatory changes. No free fluid or peritoneal masses. APPENDIX: Normal. PELVIS: No mass. No free fluid. Normal bladder. ABDOMINAL WALL: No masses. No hernias. BONES: No significant or acute findings. OTHER: No other significant finding. IMPRESSION: NO SIGNIFICANT OR ACUTE FINDING IN THE ABDOMEN OR PELVIS ON CT SCAN WITH IV CONTRAST. TECHNICAL DOCUMENTATION: JOB ID: [id number] Quality ID # [id number]: Final reports with documentation of one or more dose reduction techniques (e.g., Au tomated exposure control, adjustment of the mA and/or kV according to patient size, use of iterative reconstruction technique) 2010 [employer]- All Rights Reserved Reading location - IP/workstation name: [email or web address]
[2017-06-20 10:17] LABS: ALANINE AMINOTRANSFERASE 26 U/L (9-52); ALBUMIN 5.3 g/dL (3.5-5.0); ALKALINE PHOSPHATASE 83 U/L (38-126); ASPARTATE AMINO TRANSFERASE 35 U/L (14-36); BILIRUBIN,DIRECT 0.3 mg/dL (0.0-0.4); BLOOD UREA NITROGEN 12 mg/dL (7-20); CALCIUM 10.3 mg/dL (8.4-10.2); GLUCOSE 154 mg/dL (75-110); LIPASE 126.6 U/L (23-300); POTASSIUM 3.6 mmol/L (3.6-5.0); TOTAL PROTEIN 9.3 g/dL (6.3-8.2)
[2017-06-20 10:22] LABS: CARBON DIOXIDE 21 mmol/L (22-30); CHLORIDE 105 mmol/L (98-107); SODIUM 146.7 mmol/L (137-145)
[2017-06-20 10:25] LABS: ANION GAP 21 (5-19)
[2017-06-20 10:34] LABS: BACTERIA (WET MOUNT) 4+ BACTERIA SEEN; EPITHELIALS (WET MOUNT) 4+ EPITHELIALS SEEN; T.VAGINALIS (WET MOUNT) NO TRICHOMONAS SEEN; WBCS (WET MOUNT) 1+ WBCS SEEN; YEAST (WET MOUNT) YEAST SEEN
[2017-06-20 10:45] LABS: APPEARANCE,URINE CLOUDY; BILIRUBIN,URINE NEGATIVE (NEGATIVE); COLOR,URINE YELLOW; GLUCOSE, URINE NEGATIVE (NEGATIVE); KETONES,URINE 80 mg/dL (NEGATIVE); LEUKOCYTE ESTERASE,URINE SMALL (NEGATIVE); NITRITE,URINE POSITIVE (NEGATIVE); PROTEIN,URINE NEGATIVE (NEGATIVE); UROBILINOGEN,URINE NEGATIVE mg/dL (<2.0)
[2017-06-20] MEDS ORDERED: CEFTRIAXONE INJ 1000 MG VIAL IM ONE (10:51)
[2017-06-20] MEDS ORDERED: DIPHENHYDRAMINE HCL 50 MG/ML VIAL IV ONE (10:52)
[2017-06-20] MEDS ORDERED: CEFTRIAXONE INJ 1000 MG VIAL IV ONE (11:41)
[2017-06-20] MEDS ORDERED: PROCHLORPERAZINE EDISYLATE INJ 10 MG/2 ML VIAL IV ONE (11:42)
[2017-06-20 12:23] LABS: CHLAM PCR NOT DETECTED (NOT DETECT); GON PCR NOT DETECTED (NOT DETECT)
[2017-06-20 13:34] VITALS: BP 111/64
== END 2017-06-20 13:34 | disposition home or self-care (01) ==
LOC: ER 08:05
DX: N76.0 Acute vaginitis (principal); B96.89 Other specified bacterial agents as the cause of diseases classified elsewhere; N30.00 Acute cystitis without hematuria; M54.9 Dorsalgia, unspecified; Z88.0 Allergy status to penicillin
CPT/HCPCS: 99284; 96361; 96375; 96365; 36415; 87086; 87210; 83690; 85025; 87088; 80053; 81001; 87186; 87491; 87591; 74177; J1200; J1885; J0780; J0696; J2405; J7030